=== PATIENT | male | born 2000 | race Caucasian/White ===

== ENCOUNTER 2023-04-26 12:27 | Outpatient (AMB) | payer OTHER, SELFPAY ==
[2023-04-26 12:33] VITALS: BP 110/72; PULSE 80; TEMP 36.6; O2SAT 98; BMI 24.0
--- NOTE | 2023-04-26 12:33 | MHC.OFFWIV ---
Intake Vital Signs 04/26/23 12:33 Height 5 ft 7 in Weight 69.4 kg BMI 24.0 BP 110/72 Blood Pressure Location Rt brachial Position Sitting Pulse 80 Pulse Source Pulse Oximeter Temp 97.8 F Temp Source Temporal Artery Scan Pulse Oximetry (%) 98 Intake Visit Reasons: EST/hives all over (lobby) Intake Note: pt is here for c/o hives all over body Patient Tobacco Use Status: Never used Tobacco Allergies No Known Allergies Allergy (Verified 04/26/23 12:35) Do you need a note to return to daycare/school/sports/work: Yes HPI HPI Comments History of Present Illness Details [age] yo m presents w/ rash throughout entire body worse in the torso region X3 days worsenin. Patient reports this rash started as a mild rash however now is more diffuse and severe. He reports it is not itchy. He reports he is currently taking amoxicillin, stature seen and Mucinex for sinus infection. He has 3 more doses left of the amoxicillin and he was sent this medication for 10 days. He reports this has happened to him before but he is not directly contributed to a allergic reaction. He denies chest pain, shortness of breath, nausea, vomiting, difficulty swallowing, changes in voice, drooling, changes in airway. Physical exam diffuse maculopapular rash throughout patient's entire body worse in the torso region with underlying erythema, no signs of blistering, no mucous membrane involvement, no involvement of the palms or the soles. Speaking in full sentences controlling secretions well. Likely viral illness versus drug eruption versus allergic reaction. Unlikely anaphylaxis, threat to airway. discharge Unlikley necrotizing infection TEN/SJS Plan- gave 50 po benadryl here. Sent prednisone, epipen and benadryl to pharmacy ( instructed to stop taking cetrizine). Instructed him if he uses his EpiPen he should report to the emergency department. Or call 911. [facility] Social History Patient Tobacco Use Status: Never used Tobacco Current occupational status: employed and student Current occupation: [employer]/ student Review of Systems Const Details: Constitutional : No Weight loss, No Fever, No Chills, No Fatigue, No Malaise ENT/Mouth : No sore throat, No Rhinorrhea Eyes: No Eye Pain, No Swelling, No Redness Cardiovascular : No Chest Pain, No SOB, No Dyspnea on Exertion, No Orthopnea, No Edema, No Palpitations Respiratory : No Cough, No Sputum, No Wheezing Gastrointestinal : No Nausea, No Vomiting, No Diarrhea, No Constipation, No abdominal Pain, No Hematochezia, No Melena Genitourinary : No Dysuria, No Urinary Frequency, No Hematuria, Musculoskeletal : No joint pain, No Myalgias, No Joint Swelling Skin : No Skin Lesions, + rash Neuro : No Weakness, No Numbness, No Dizziness, No Headache Psych : No Anxiety/Panic, No Depression All other systems reviewed and are negative All systems reviewed & are unremarkable except as noted in HPI and below Physical Exam Vital Signs: BMI result Body Mass Index 24.0 vss Appearance: Alert.? Oriented X3.? No acute distress.? Head: Normocephalic, atraumatic, no step-offs or deformities Eyes: Pupils equal, round and reactive to light.? ENT: Pharynx normal.? Neck: Normal inspection.? Neck supple.? CVS: Normal heart rate and rhythm.? Pulses normal.? Respiratory: No respiratory distress.? Breath sounds normal.? Abdomen: Soft and nontender.? Skin: Skin warm and dry.? Normal skin color.? Normal skin turgor.?+ diffuse maculopapular rash throughout patient's entire body worse in the torso region with underlying erythema, no signs of blistering, no mucous membrane involvement, no involvement of the palms or the soles. Speaking in full sentences controlling secretions well. Extremities: No lower extremity edema.? No calf ttp. 5/5 strength to bilateral upper and lower extremities Neuro: Oriented X 3.? No motor deficit.? No sensory deficit. CN 2-12 intact Assessment & Plan Assessment & Plan (1) Allergic reaction: Code(s): T78.40XA - Allergy, unspecified, initial encounter Plan Take your medications as prescribed. If you were prescribed antibiotics today, it is important that you take your medication to their entirety, do not skip any doses, do not finish them early. Follow-up with your primary care provider this week. Return to the emergency department with new or worsening symptoms. Such as fevers, chills, chest pain, shortness of breath, nausea, vomiting, dizziness, headache, vision changes, lethargy In case of emergency call 911 Medications: New prednisone 60 mg (3 x 20 mg) PO DAILY 5 days 15 tabs 0RF diphenhydramine HCl (Benadryl) 25 mg PO TID PRN 30 caps 0RF allergy symptoms epinephrine (EpiPen 2-Chung) 0.3 mg (0.3 mL) IM Q4H PRN 2 ea 0RF anaphylaxis Coding Level of Care Code Est Pt Level 3 (66520) Diagnoses Allergic reaction T78.40XA
== END 2023-04-26 13:23 | disposition home or self-care (01) ==
PROVIDERS: Visit Provider Physician Assistant
DX: T78.40XA Allergy, unspecified, initial encounter (principal)
CPT/HCPCS: 99213